=== PATIENT | male | born 2000 | race Two or more races ===

== ENCOUNTER 2020-01-23 10:06 | Outpatient (REF) | payer OTHER, SELFPAY | END 2020-01-23 10:07 | disposition home or self-care (01) | LOC: HO.LAB 10:06 | PROVIDERS: Visit Provider Internal Medicine | DX: Z20.828 Contact with and (suspected) exposure to other viral communicable diseases (principal) | CPT/HCPCS: C9803; U0003 ==

== ENCOUNTER 2020-09-25 11:45 | Emergency (ER) | payer OTHER, SELFPAY ==
--- NOTE | ~2020-09-25 | XR_ITS ---
EXAMINATION: XR ANKLE, RIGHT CLINICAL INFORMATION: Pain COMPARISON: None TECHNIQUE: AP, lateral, and mortise views of the right ankle. FINDINGS: The malleoli are intact and the ankle mortise is symmetric. There is no fracture or dislocation. No joint narrowing. No osteochondral lesion talar dome. The retrocalcaneal recess is preserved. Subtalar joint appears normal. Base of the fifth metatarsal is intact. XR/XR ankle RT min 3V IMPRESSION: No fracture or dislocation.
[2020-09-25 11:50] VITALS: BP 134/75; PULSE 68; RESP 18; TEMP 36.1; O2SAT 97; BMI 29.5
--- NOTE | 2020-09-25 12:39 | ED_ITS ---
HPI - Extremity Problem General Chief complaint: Extremity Problem Stated complaint: ankle injury Time Seen by Provider: 09/25/20 12:39 History of Present Illness HPI Narrative: Patient complains of right ankle pain after twisting it 2 days ago in basketball, no numbness weakness or tingling no laceration no other joint pains no other injury Related Data Previous Rx's Medication Instructions Recorded ibuprofen 600 mg tablet 600 mg PO Q6H PRN #20 tab 09/25/20 Allergies Allergy/AdvReac Type Severity Reaction Status Date / Time Penicillins [PENICILLINS] Allergy Unknown UNKNOWN Unverified 11/02/19 19:40 Review of Systems Review of Systems: Positive for right ankle pain and swelling Negatives are no head injury no neck pain no back pain no numbness weakness or tingling no knee pain Yes all other systems are reviewed and are negative [facility] Past Medical History Source: nursing notes reviewed Medical History (Updated 09/25/20 @ 12:43 by BIANCA Guillaume) Asthma Social History Social History Advance Directives: No Advance Directives Information Provided: No Physical Exam Vital Signs: Vital Signs: Last Vital Signs Temp 96.9 F 09/25/20 11:50 Pulse 68 09/25/20 11:50 Resp 18 09/25/20 11:50 BP 134/75 09/25/20 11:50 Pulse Ox 97 09/25/20 11:50 Body Mass Index 29.5 General appearance is no acute distress Head is normocephalic atraumatic Neck is supple nontender The back full range of motion Respiratory no distress The right leg has full range of motion at the knee and hip, the right ankle has tenderness swelling and ecchymosis both medial and lateral, Achilles tendon is intact, neurovascular is intact and skin is intact without wound or redness, neurovascular intact distal Course Course Course Narrative: X-ray of the right ankle was negative for fracture no acute finding Patient ambulates comfortably with a limp and is given an ankle brace and a work note and follow with Orthopedics if needed Discharge Plan Discharge Clinical Impression: Right ankle sprain Patient Disposition: Home, Self-Care Additional Instructions: X-ray of the right ankle was negative no fracture seen Follow with orthopedist as needed Return any time if worse Prescriptions: New ibuprofen 600 mg tablet 600 mg PO Q6H PRN (Reason: pain) Qty: 20 RF: 0 Referrals: Yohan Villasenor MD [Physician] - 2 days (Right ankle sprain)
--- NOTE | 2020-09-25 13:22 | ED.EXTPRO ---
HPI - Extremity Problem General Chief complaint: Extremity Problem Stated complaint: ankle injury Time Seen by Provider: 09/25/20 12:39 History of Present Illness HPI Narrative: Patient complains of right ankle pain after twisting it playing ball 2 days ago, pain is mild, no other injury Related Data Previous Rx's Medication Instructions Recorded ibuprofen 600 mg tablet 600 mg PO Q6H PRN #20 tab 09/25/20 Allergies Allergy/AdvReac Type Severity Reaction Status Date / Time Penicillins [PENICILLINS] Allergy Unknown UNKNOWN Unverified 11/02/19 19:40 Review of Systems Review of Systems: Positive for right ankle pain Negatives are no headache no neck pain no back pain no numbness weakness or tingling no laceration no other joint pains Yes all other systems are reviewed and are negative [facility] Past Medical History Source: nursing notes reviewed Medical History (Updated 09/26/20 @ 00:02 by Keerthi Romero) Asthma Social History Social History Advance Directives: No Advance Directives Information Provided: No Physical Exam Vital Signs: Vital Signs: Last Vital Signs Temp 96.9 F 09/25/20 11:50 Pulse 68 09/25/20 11:50 Resp 18 09/25/20 11:50 BP 134/75 09/25/20 11:50 Pulse Ox 97 09/25/20 11:50 Body Mass Index 29.5 General appearance no acute distress Head is normocephalic atraumatic Neck is supple nontender Respiratory no distress The back at full range of motion Extremities the right ankle had tenderness swelling around the lateral malleolus, ambulated with a limp, skin was intact and neurovascular intact distal Other extremities were normal Neuro no focal motor sensory deficits Course Course Course Narrative: Right ankle x-ray was negative, patient was otherwise well appearing and was discharged with a work note and referral to Orthopedics if needed Discharge Plan Discharge Clinical Impression: Right ankle sprain Patient Disposition: Home, Self-Care Additional Instructions: X-ray of the right ankle was negative no fracture seen Follow with orthopedist as needed Return any time if worse Prescriptions: New ibuprofen 600 mg tablet 600 mg PO Q6H PRN (Reason: pain) Qty: 20 RF: 0 Referrals: Yohan Villasenor MD [Physician] - 2 days (Right ankle sprain) Stand Alone Forms: Work/School Release Interventions: ED Discharge Assessment Last Done: 09/25/20 13:00 Discharge Date/Time: 09/25/20 13:01
== END 2020-09-25 13:01 | disposition home or self-care (01) ==
PROVIDERS: Emergency Provider Emergency Medicine Emergency Medical Services; PCP Internal Medicine
DX: S93.401A Sprain of unspecified ligament of right ankle, initial encounter (principal); X50.1XXA Overexertion from prolonged static or awkward postures, initial encounter; Y93.67 Activity, basketball; Y92.9 Unspecified place or not applicable; Y99.9 Unspecified external cause status
CPT/HCPCS: 73610; 99283

== ENCOUNTER 2022-01-13 14:05 | Emergency (ER) | payer OTHER, SELFPAY ==
[2022-01-13 18:41] VITALS: BP 150/88; PULSE 92; RESP 18; TEMP 37.1; O2SAT 96; BMI 31.7
--- NOTE | 2022-01-13 18:43 | ED.GENADULT ---
HPI - General Adult General Chief complaint: Upper Respiratory Symptoms Stated complaint: sore throat Time Seen by Provider: 01/13/22 19:48 Related Data Previous Rx's Medication Instructions Recorded ibuprofen 600 mg tablet 600 mg PO Q6H PRN pain #20 tabs 09/25/20 Magic Mouthwash 5 ml PO BID sore throat #240 mL 01/13/22 Diphen/Lido/Antacid 1:1:1 240 mL suspension prednisone 20 mg tablet 40 mg PO DAILY 5 days #10 tabs 01/13/22 Allergies Allergy/AdvReac Type Severity Reaction Status Date / Time Penicillins [PENICILLINS] Allergy Unknown UNKNOWN Verified 01/13/22 18:41 PMFSH Past Medical History Medical History Asthma Social History Social History Advance Directives: No Physical Exam ED Vital Signs: Vital Signs - 24 hr 01/13/22 18:41 Temperature 98.7 F Pulse Rate 92 Respiratory Rate 18 Blood Pressure 150/88 H Pulse Oximetry 96 Oxygen Delivery Method Room Air BMI result Body Mass Index 31.7 Course Course Course Narrative: 21M with subjective fevers, chills, nasal congestion, sore throat but no ear pain for 2-3 days. VITAL SIGNS: Reviewed. GENERAL: Well developed, well nourished, in no acute distress. EYES: PERRLA, EOMI intact without pain, no nystagmus/pallor/icterus noted EARS: Ext canals without abnormality, TMs non-bulging and non-erythematous NOSE: Nares patent bilateral OROPHARYNX: no oral lesions noted, posterior pharynx clear and non-erythematous without noted tonsillar enlargement/erythema/exudates NECK: Supple, no adenopathy LUNGS: Normal breath sounds. No adventitious sounds or accessory muscle use. To CARDIOVASCULAR: Regular rate and rhythm without noted murmurs ABDOMEN: Soft, non-tender, non-distended with bowel sounds. SKIN: Inspection of the skin reveals no rashes NEUROLOGIC: Alert and oriented x 4. Strength and sensation to light touch were grossly intact x 4. Medical Decision Making Lab Data Labs: Lab Results 01/13/22 01/13/22 Range/Units 18:46 18:46 Influenza Type A (PCR) POSITIVE A (Negative) Influenza Type B (PCR) NEGATIVE (Negative) RSV RNA Qual (PCR) NEGATIVE (Negative) SARS-CoV-2 RNA (RT-PCR) NEGATIVE (Negative) S. pyogenes GrpA GM Negative (Negative) Discharge Plan Discharge Clinical Impression: Influenza, Sore throat Patient Disposition: Home, Self-Care Instructions: Influenza (ED) Additional Instructions: Take your medications as prescribed. If you were prescribed antibiotics today, it is important that you take your medication to their entirety, do not skip any doses, do not finish them early. Follow-up with your primary care provider this week. Return to the emergency department with new or worsening symptoms difficulty controlling secretions, fevers, chills, chest pain, shortness of breath, nausea, vomitin, not tollerating food. In case of emergency call 911 You can take ibuprofen every 6 hours, tylenol every 4 hours as needed for fevers, pain or discomfort You are contagious follow good hygiene Prescriptions: New prednisone 20 mg tablet 40 mg PO DAILY 5 Days Qty: 10 0RF Magic Mouthwash Diphen/Lido/Antacid 1:1:1 240 mL suspension 5 ml PO BID Qty: 240 0RF Rx Instructions: Lidocaine Viscous 2 % 80mL; diphenhydramine 12.5 mg/5 mL 80mL; aluminum-mag hydrox-simeth [id number]/5mL 80mL Swish and spit No Action ibuprofen 600 mg tablet 600 mg PO Q6H PRN (Reason: pain) Qty: 20 0RF Referrals: El Cordova III, MD [Primary Care Provider] - 2 days Stand Alone Forms: Work/School Release
[2022-01-13 19:12] LABS: Strep A Nucleic Acid Negative (Negative)
[2022-01-13 19:38] LABS: Influenza A PCR POSITIVE (Negative); Influenza B PCR NEGATIVE (Negative); Resp Syncy Virus RNA Qual PCR NEGATIVE (Negative); SARS COV2 PCR INHOUSE NEGATIVE (Negative)
--- NOTE | 2022-01-13 19:50 | ED.URI ---
HPI - URI/Sore Throat General Chief Complaint: Upper Respiratory Symptoms Stated Complaint: sore throat Time Seen by Provider: 01/13/22 19:48 Source: patient Mode of arrival: ambulatory Limitations: no limitations History of Present Illness HPI Narrative: 21 year old male no significant medical history presenting with three days of subjective fevers, chills, sore throat, dry cough, fatigue and malaise. Reports recent sick contacts tested positive for influenza. Denies chest pain, shortness of breath, nausea, vomiting, abd pain, headache, vision changes, dizzinss, weakness. Tollerating PO. Normal spirits per patient. Not vaccinated against flu. Related Data Previous Rx's Medication Instructions Recorded ibuprofen 600 mg tablet 600 mg PO Q6H PRN pain #20 tabs 09/25/20 Magic Mouthwash 5 ml PO BID sore throat #240 mL 01/13/22 Diphen/Lido/Antacid 1:1:1 240 mL suspension prednisone 20 mg tablet 40 mg PO DAILY 5 days #10 tabs 01/13/22 Allergies Allergy/AdvReac Type Severity Reaction Status Date / Time Penicillins [PENICILLINS] Allergy Unknown UNKNOWN Verified 01/13/22 18:41 Review of Systems Review of Systems: Constitutional : No Weight loss, + Fever, + Chills, + Fatigue, + Malaise ENT/Mouth : + sore throat, No Rhinorrhea Eyes: No Eye Pain, No Swelling, No Redness Cardiovascular : No Chest Pain, No SOB, No Dyspnea on Exertion, No Orthopnea, No Edema, No Palpitations Respiratory : + Cough, No Sputum, No Wheezing Gastrointestinal : No Nausea, No Vomiting, No Diarrhea, No Constipation, No abdominal Pain, No Hematochezia, No Melena Genitourinary : No Dysuria, No Urinary Frequency, No Hematuria, Musculoskeletal : No joint pain, + Myalgias, No Joint Swelling Skin : No Skin Lesions, No rash Neuro : No Weakness, No Numbness, No Dizziness, No Headache Psych : No Anxiety/Panic, No Depression All other systems reviewed and are negative Yes all other systems are reviewed and are negative [facility] Past Medical History Attestation statement: The following information was validated with the patient. Source: old records reviewed and nursing notes reviewed Medical History Asthma Physical Exam Vital Signs: Vital Signs: Last Vital Signs Temp 98.7 F 01/13/22 18:41 Pulse 92 01/13/22 18:41 Resp 18 01/13/22 18:41 BP 150/88 H 01/13/22 18:41 Pulse Ox 96 01/13/22 18:41 O2 Del Method 01/13/22 18:41 BMI result Body Mass Index 31.7 vss Appearance: Alert.? Oriented X3.? No acute distress.?Non toxic appearing Head: Normocephalic, atraumatic, no step-offs or deformities Eyes: Pupils equal, round and reactive to light.? ENT: Pharynx w/ slightly edematous and errythematous tonsils, midline uvula, no abcess or exudate.?No pain with manipulation of external ears bilaterally. No mastoid tenderness. Neck: Normal inspection.? Neck supple. No menigeal signs CVS: Normal heart rate and rhythm.? Pulses normal.? Respiratory: No respiratory distress.? Breath sounds normal.? Abdomen: Soft and nontender.? Skin: Skin warm and dry.? Normal skin color.? Normal skin turgor.? Extremities: No lower extremity edema.? No calf ttp. 5/5 strength to bilateral upper and lower extremities Neuro: Oriented X 3.? No motor deficit.? No sensory deficit. CN 2-12 intact Course Reevaluation(s) Reevaluation #1: Sx for > 48 hrs no need for tamiflu. Will DC home w/ supportive measures. Adives to return w/ new or worsening sx, educated on these. Comfortable w/ dc home with PCP follow up. Time: 19:55 MDM - URI/Sore Throat [facility] Narrative Medical decision making narrative: 1952 21 year old male w/ flu like sx X3 days. Reports sick contacts w/ flu + PE w/ slightly swollen tonsils no exudate or abcess Likley influenza. Will rule out covid/ flu/ rsv. Unlikley strep, peritonsillar abcess, epiglotitis, masotiditis, pna, pe Medical Records Attestation: I reviewed the patient's medical records. Lab Data Attestation: I reviewed the patient's lab results. Labs: Lab Results 01/13/22 01/13/22 Range/Units 18:46 18:46 Influenza Type A (PCR) POSITIVE A (Negative) Influenza Type B (PCR) NEGATIVE (Negative) RSV RNA Qual (PCR) NEGATIVE (Negative) SARS-CoV-2 RNA (RT-PCR) NEGATIVE (Negative) S. pyogenes GrpA GM Negative (Negative) Critical Care Time Critical Care Time Critical Care Time: No Discharge Plan Discharge Clinical Impression: Influenza, Sore throat Patient Disposition: Home, Self-Care Instructions: Influenza (ED) Additional Instructions: Take your medications as prescribed. If you were prescribed antibiotics today, it is important that you take your medication to their entirety, do not skip any doses, do not finish them early. Follow-up with your primary care provider this week. Return to the emergency department with new or worsening symptoms difficulty controlling secretions, fevers, chills, chest pain, shortness of breath, nausea, vomitin, not tollerating food. In case of emergency call 911 You can take ibuprofen every 6 hours, tylenol every 4 hours as needed for fevers, pain or discomfort You are contagious follow good hygiene Prescriptions: New prednisone 20 mg tablet 40 mg PO DAILY 5 Days Qty: 10 0RF Magic Mouthwash Diphen/Lido/Antacid 1:1:1 240 mL suspension 5 ml PO BID Qty: 240 0RF Rx Instructions: Lidocaine Viscous 2 % 80mL; diphenhydramine 12.5 mg/5 mL 80mL; aluminum-mag hydrox-simeth [id number]/5mL 80mL Swish and spit No Action ibuprofen 600 mg tablet 600 mg PO Q6H PRN (Reason: pain) Qty: 20 0RF Referrals: El Cordova III, MD [Primary Care Provider] - 2 days Stand Alone Forms: Work/School Release
== END 2022-01-13 20:19 | disposition home or self-care (01) ==
PROVIDERS: Student in an Organized Health Care Education/Training Program; Emergency Provider Emergency Medicine; PCP Internal Medicine
DX: J10.1 Influenza due to other identified influenza virus with other respiratory manifestations (principal); Z20.822 Contact with and (suspected) exposure to COVID-19
CPT/HCPCS: 0241U; 36415; 87651; 99282; 99283

== ENCOUNTER 2022-09-18 07:58 | Emergency (ER) | payer SELFPAY ==
[2022-09-18 08:11] VITALS: BP 138/81; PULSE 64; RESP 18; TEMP 36.8; O2SAT 97; BMI 31.7
[2022-09-18 08:36] VITALS: BP 132/68; PULSE 71; RESP 18; TEMP 37.6; O2SAT 98
--- NOTE | 2022-09-18 08:42 | ED.GENADULT ---
HPI - General Adult General Chief complaint: Wound/Laceration Stated complaint: Cyst on thigh Time Seen by Provider: 09/18/22 08:39 Source: patient Mode of arrival: ambulatory Limitations: no limitations History of Present Illness HPI narrative: Patient presents with a cystic structure on left medial thigh. Started 1-2 days ago. Patient has associated [id number] pain. The pain is worse with palpation. There has been no drainage. He has never had anything like this before. Denies any fevers or chills. Related Data Previous Rx's Medication Instructions Recorded ibuprofen 600 mg tablet 600 mg PO Q6H PRN pain #20 tabs 09/25/20 Magic Mouthwash 5 ml PO BID sore throat #240 mL 01/13/22 Diphen/Lido/Antacid 1:1:1 240 mL suspension prednisone 20 mg tablet 40 mg PO DAILY 5 days #10 tabs 01/13/22 sulfamethoxazole 800 1 tab PO BID #14 tabs 09/18/22 mg-trimethoprim 160 mg tablet (Bactrim DS) Allergies Allergy/AdvReac Type Severity Reaction Status Date / Time Penicillins [PENICILLINS] Allergy Unknown UNKNOWN Verified 09/18/22 08:13 Review of Systems Review of Systems: CONSTITUTIONAL: Denies weight loss, fever and chills. HEENT: Denies changes in vision and hearing. RESPIRATORY: Denies SOB and cough. CV: Denies palpitations no CP. GI: Denies abdominal pain, nausea, vomiting and diarrhea. : Denies dysuria and urinary frequency. MSK: Denies myalgia and joint pain. SKIN: Denies rash and pruritus. NEUROLOGICAL: Denies headache and syncope. PSYCHIATRIC: Denies recent changes in mood. Denies anxiety and depression. All other ROS are negative unless in HPI PMFSH Past Medical History Medical History Asthma Social History Social History Alcohol intake: never Smoked in Last 30 Days: No Use of substances other than those prescribed or required for medical reasons: No Advance Directives: No Advance Directives Information Provided: Yes Physical Exam ED Vital Signs: Vital Signs - 24 hr 09/18/22 08:11 09/18/22 08:36 Temperature 98.3 F 99.6 F Pulse Rate 64 71 Respiratory Rate 18 18 Blood Pressure 138/81 132/68 Pulse Oximetry 97 98 Oxygen Delivery Method Room Air Room Air BMI result Body Mass Index 31.7 GEN: Well developed, no acute distress, alert, oriented HEENT: Normocephalic, atraumatic, normal external ears, nose appears normal Eyes: Normal to appearance Neck: Supple, no lymphadenopathy Respiratory: Talks in complete sentences, no respiratory distress Extremities: No clubbing cyanosis or edema Neurologic: No focal neurologic deficits, cranial nerves 2-12 intact, gait normal Skin: No rash, small ingrown hair/superficial abscess left andrew thigh proximally 0.75 cm wide. Able to express purulent and bloody discharge. Medical Decision Making Medical Decision Making MDM Narrative: Patient presents with a likely ingrown hair and medial thigh/abscess. Was able to express purulent material. Discussed warm compresses. There is no definite indication for antibiotics at this time however I will prescribe the patient antibiotics in the case that he develops progressive skin changes cleaning erythema, enlarging abscess, etc.. He is aware that he should return for any worsening or concerning symptoms. Differential Diagnosis Differential Diagnoses: The differential diagnosis associated with the presentation includes (Abscess, ingrown hair) Prescription Management I considered prescription management with: Antibiotic Discharge Plan Discharge Clinical Impression: Abscess Patient Disposition: Home, Self-Care Instructions: Abscess (ED), Sitz Bath (DC) Prescriptions: New sulfamethoxazole-trimethoprim [Bactrim DS] 800-160 mg tablet 1 tab PO BID Qty: 14 0RF No Action ibuprofen 600 mg tablet 600 mg PO Q6H PRN (Reason: pain) Qty: 20 0RF prednisone 20 mg tablet 40 mg PO DAILY 5 Days Qty: 10 0RF Magic Mouthwash Diphen/Lido/Antacid 1:1:1 240 mL suspension 5 ml PO BID Qty: 240 0RF Rx Instructions: Lidocaine Viscous 2 % 80mL; diphenhydramine 12.5 mg/5 mL 80mL; aluminum-mag hydrox-simeth [id number]/5mL 80mL Swish and spit Referrals: El Cordova III, MD [Primary Care Provider] - 2 days (if needed) Stand Alone Forms: Work/School Release
== END 2022-09-18 08:54 | disposition home or self-care (01) ==
PROVIDERS: Emergency Provider Emergency Medicine; PCP Internal Medicine
DX: L02.416 Cutaneous abscess of left lower limb (principal); M79.652 Pain in left thigh
CPT/HCPCS: 99283; 99284

== ENCOUNTER 2023-02-27 17:06 | Emergency (ER) | payer OTHER, SELFPAY ==
--- NOTE | ~2023-02-27 | XR_ITS ---
EXAMINATION: XR ankle RT min 3V, XR foot RT min 3V 02/27/2023 6:22 PM CLINICAL HISTORY: pain s/p inversion COMPARISON: None FINDINGS: Tiny ossific fragment inferior to the fibular tip, suspicious for small avulsion, possibly from the lateral talus. No evidence of malalignment. Mild proliferative change at the medial malleolus, likely sequela of remote ligamentous injury. Ankle mortise is congruent. Talar dome is intact. Posterior talar Stieda process. Small posterior calcaneal enthesophyte. No tibiotalar joint effusion. Marked lateral ankle soft tissue swelling. XR/XR ankle RT min 3V IMPRESSION: 1. Tiny ossific fragment inferior to the fibular tip, suspicious for small avulsion, possibly from the lateral talus. 2. Marked lateral ankle soft tissue swelling.
--- NOTE | ~2023-02-27 | XR_ITS ---
EXAMINATION: XR ankle RT min 3V, XR foot RT min 3V 02/27/2023 6:22 PM CLINICAL HISTORY: pain s/p inversion COMPARISON: None FINDINGS: Tiny ossific fragment inferior to the fibular tip, suspicious for small avulsion, possibly from the lateral talus. No evidence of malalignment. Mild proliferative change at the medial malleolus, likely sequela of remote ligamentous injury. Ankle mortise is congruent. Talar dome is intact. Posterior talar Stieda process. Small posterior calcaneal enthesophyte. No tibiotalar joint effusion. Marked lateral ankle soft tissue swelling. XR/XR foot RT min 3V IMPRESSION: 1. Tiny ossific fragment inferior to the fibular tip, suspicious for small avulsion, possibly from the lateral talus. 2. Marked lateral ankle soft tissue swelling.
[2023-02-27 17:11] VITALS: BP 110/60; PULSE 84; O2SAT 100
[2023-02-27 17:54] VITALS: BP 121/61; PULSE 84; RESP 16; TEMP 36.5; O2SAT 97; BMI 33.2
--- NOTE | 2023-02-27 17:54 | ED.LOWEXIN ---
HPI - Extremity Injury (Lower) General Chief Complaint: Extremity Injury, Lower Stated Complaint: ankle injury Time Seen by Provider: 02/27/23 19:24 Source: patient and RN notes reviewed Mode of arrival: ambulatory Limitations: no limitations History of Present Illness HPI Narrative: This is a 22-year-old male, with a history of asthma, presenting to the emergency department complaints of right ankle and foot pain status post inversion injury while playing basketball this evening. Patient reports that he accidentally rolled his right ankle and immediately felt a pop and a snap in his right ankle and foot. He has been unable to bear weight on his right foot and ankle since the injury. He was medicated with ibuprofen 600 mg prior to his arrival. Denies previous fracture in this ankle however reports he believes he has rolled his ankle before. Denies hitting his head or loss of consciousness. No other pain. No other complaints or concerns this time. MD complaint: ankle injury and foot injury Onset (ago): minute(s) Type of Injury: inversion Place: street/outdoors Severity: moderate Relieving factors: NSAID Exacerbating factors: weight bearing Context: running Associated symptoms: snap/pop sensation, swelling, tingling and unable to bear weight Other symptoms: none Treatments prior to arrival: cold therapy and NSAIDS Related Data Previous Rx's Medication Instructions Recorded ibuprofen 600 mg tablet 600 mg PO Q6H PRN pain #20 tabs 09/25/20 Magic Mouthwash 5 ml PO BID sore throat #240 mL 01/13/22 Diphen/Lido/Antacid 1:1:1 240 mL suspension prednisone 20 mg tablet 40 mg (2 x 20 mg) PO DAILY 5 days 01/13/22 #10 tabs sulfamethoxazole 800 1 tab PO BID #14 tabs 09/18/22 mg-trimethoprim 160 mg tablet (Bactrim DS) acetaminophen 500 mg tablet 500 mg PO Q6H PRN pain #30 tabs 02/27/23 (Tylenol Extra Strength) ibuprofen 600 mg tablet 600 mg PO Q6H PRN pain #30 tabs 02/27/23 Allergies Allergy/AdvReac Type Severity Reaction Status Date / Time Penicillins [PENICILLINS] Allergy Unknown UNKNOWN Verified 09/18/22 08:13 Review of Systems Review of Systems: Yes all other systems are reviewed and are negative PMFSH Past Medical History Attestation statement: The following information was validated with the patient. Onset Date is defined in the Problem List Problems that require an onset date and time if occurred within 24 hrs of arrival to the ED Aortic Dissection and Rupture; Neurologic impairment; Cardiopulmonary Arrest; Endotracheal Intubation; Insertion or Replacement of Mechanical Circulatory Assist Device Medical History Asthma Social History Social History Alcohol intake: never Advance Directives: No Advance Directives Information Provided: No Physical Exam Vital Signs: Vital Signs: Last Vital Signs Temp 97.7 F 02/27/23 17:54 Pulse 84 02/27/23 17:54 Resp 16 02/27/23 17:54 BP 121/61 02/27/23 17:54 Pulse Ox 97 02/27/23 17:54 O2 Del Method Room Air 02/27/23 17:54 BMI result Body Mass Index 33.2 Const: Other: General: Awake, alert, and oriented X3. No acute distress. HEENT: Normal inspection CVS: Normal heart rate and rhythm. Pulses normal. Respiratory: No respiratory distress Skin: Warm, dry, no rashes noted to exposed skin. Normal skin color. Normal skin turgor. Extremities: Right ankle is moderately edematous, with tenderness palpation along the lateral and medial malleolus. More tenderness palpation along the lateral malleolus, as well tenderness to palpation along the left 5th metatarsal There is moderate swelling noted to the dorsum of the right foot. Decreased range of motion of the right ankle and foot secondary to pain and swelling. DP pulse 2 +. Able to move all toes without difficulty. Distal sensation circulation intact Neuro: Oriented X 3. No motor deficit. No sensory deficit. Course Course Course Narrative: This is an RME: Additional HPI, ROS, PE not included below will be deferred to primary provider. This is a 22-year-old male presenting to the emergency department for evaluation of right ankle and foot pain status post inversion injury while playing basketball. He has been unable to bear weight on his right foot and ankle since the injury. Right ankle is edematous, with tenderness palpation along the medial and lateral malleolus and right 5th metatarsal. Patient already received ibuprofen via EMS prior to his arrival. Plan: Xray foot and xray ankle ordered Medical Decision Making Medical Decision Making MDM Narrative: This is a 22-year-old male, with a history of asthma, presenting to the emergency department complaints of right ankle and foot pain status post inversion injury while playing basketball this evening. Examination findings concerning for possible malleoli fracture versus metatarsal fracture. Distal sensation circulation intact. X-ray of the right ankle and foot revealing possible talus fracture versus fibular fracture. Given findings, patient was placed in splint and crutches and given orthopedic follow-up. Given return precautions. Patient understands agrees with plan. Patient stable for discharge Differential Diagnosis Differential Diagnoses: The differential diagnosis associated with the presentation includes Fracture, sprain, strain, contusion, dislocation Radiology Impression Discussion of test interpretation with radiology: I have reviewed the radiologist's reading. Radiologist Impression: EXAMINATION: XR ankle RT min 3V, XR foot RT min 3V 02/27/2023 6:22 PM CLINICAL HISTORY: pain s/p inversion COMPARISON: None FINDINGS: Tiny ossific fragment inferior to the fibular tip, suspicious for small avulsion, possibly from the lateral talus. No evidence of malalignment. Mild proliferative change at the medial malleolus, likely sequela of remote ligamentous injury. Ankle mortise is congruent. Talar dome is intact. Posterior talar Stieda process. Small posterior calcaneal enthesophyte. No tibiotalar joint effusion. Marked lateral ankle soft tissue swelling. XR/XR foot RT min 3V IMPRESSION: 1. Tiny ossific fragment inferior to the fibular tip, suspicious for small avulsion, possibly from the lateral talus. 2. Marked lateral ankle soft tissue swelling. Dictated By: Anastacio Smith MD EXAMINATION: XR ankle RT min 3V, XR foot RT min 3V 02/27/2023 6:22 PM CLINICAL HISTORY: pain s/p inversion COMPARISON: None FINDINGS: Tiny ossific fragment inferior to the fibular tip, suspicious for small avulsion, possibly from the lateral talus. No evidence of malalignment. Mild proliferative change at the medial malleolus, likely sequela of remote ligamentous injury. Ankle mortise is congruent. Talar dome is intact. Posterior talar Stieda process. Small posterior calcaneal enthesophyte. No tibiotalar joint effusion. Marked lateral ankle soft tissue swelling. XR/XR ankle RT min 3V IMPRESSION: 1. Tiny ossific fragment inferior to the fibular tip, suspicious for small avulsion, possibly from the lateral talus. 2. Marked lateral ankle soft tissue swelling. Dictated By: Anastacio Smith MD Prescription Management I considered prescription management with: Pain Medication Procedures Orthopedic Splinting/Casting Injury #1: Side: right Lower Extremity Injury Location: ankle and foot Lower Extremity Immobilizer: posterior splint and stirrup splint Other Orthopedic Equipment: crutches Discharge Plan Discharge Clinical Impression: Ankle fracture, Fracture of talus Patient Disposition: Home, Self-Care Instructions: Ankle Fracture (ED), Crutch Instructions (ED) Additional Instructions: Your seen in the emergency department due to right foot and ankle pain. Your x-ray reveals a tiny fragment, suspicious for a lateral talus fracture versus fibular fracture. We placed your right foot and ankle in a splint, please keep the splint on until you are seen by Orthopedics. You need to call the orthopedist on Wednesday for follow-up. Please keep your splint clean and dry, do not shower while this is on. Do not remove until you are seen by Orthopedics. Do not weight bear on your foot and ankle (use crutches) until you are cleared by Orthopedics. Elevating your leg above multiple pillows will help with swelling and pain. If any new or worsening symptoms occur including but not limited to worsening pain, changes in coloration of your toes, numbness and tingling into your toes, please return for re-evaluation. Prescriptions: New ibuprofen 600 mg tablet 600 mg PO Q6H PRN (Reason: pain) Qty: 30 0RF acetaminophen [Tylenol Extra Strength] 500 mg tablet 500 mg PO Q6H PRN (Reason: pain) Qty: 30 0RF No Action ibuprofen 600 mg tablet 600 mg PO Q6H PRN (Reason: pain) Qty: 20 0RF prednisone 20 mg tablet 40 mg PO DAILY 5 Days Qty: 10 0RF Magic Mouthwash Diphen/Lido/Antacid 1:1:1 240 mL suspension 5 ml PO BID Qty: 240 0RF Rx Instructions: Lidocaine Viscous 2 % 80mL; diphenhydramine 12.5 mg/5 mL 80mL; aluminum-mag hydrox-simeth 399df-466dt-15zg/5mL 80mL Swish and spit sulfamethoxazole-trimethoprim [Bactrim DS] 800-160 mg tablet 1 tab PO BID Qty: 14 0RF Ref[place]: [facility] [place] [facility] [Provider Group]
== END 2023-02-27 21:58 | disposition home or self-care (01) ==
PROVIDERS: Emergency Provider Internal Medicine; PCP Internal Medicine
DX: S92.101A Unspecified fracture of right talus, initial encounter for closed fracture (principal); X50.1XXA Overexertion from prolonged static or awkward postures, initial encounter; Y93.67 Activity, basketball; Y92.310 Basketball court as the place of occurrence of the external cause; Y99.9 Unspecified external cause status
CPT/HCPCS: 29515; 73610; 73630; 99282; 99283

== ENCOUNTER 2023-03-01 13:40 | Outpatient (AMB) | payer OTHER, SELFPAY ==
--- NOTE | 2023-03-01 13:50 | MHC.OFFVIS ---
Intake Vital Signs 03/01/23 14:04 Height 5 ft 9 in Weight 225 lb BMI 33.2 Intake Visit Reasons: FC/[employer]-RT Ankle fracture, FC of talus DOI 02/27/23 Intake Note: Rigoberto sainz 22 year old male presents today as a new patient for an ER follow up of right ankle, DOI 02/27/23. Patient reports while he was playing basketball he landed on another opponent injuring his right ankle. He presented to [facility] [place] [facility] same day where xrays were taken and placed in a splint. Currently his pain is located around his ankle. Numbness and tingling in his toes. Finds relief with ibuprofen. Allergies Penicillins [PENICILLINS] Allergy (Unknown, Verified 03/01/23 14:04) UNKNOWN Medication List - Last Reconciled 03/01/23 by BIANCA Fu-Rosario acetaminophen (Tylenol Extra Strength) 500 mg PO Q6H PRN albuterol sulfate 90 mcg/actuation (Ventolin HFA) 2 puffs inhalation Q4-6H PRN budesonide-formoterol 160-4.5 mcg/actuation inhalation ibuprofen 600 mg PO Q6H PRN ibuprofen 600 mg PO Q6H PRN HPI [employer]ICE-RT Ankle fracture, FC of talus DOI 02/27/23 HPI Details 22-year-old male who presents to the office today for an ER follow-up of right ankle injury s/p playing basketball when he landed on another opponent injuring his right ankle, 02/27/23. He was seen at ED the same day where x-rays were performed and he was placed in a splint. He currently states he has pain around his ankle as well as numbness and tingling in his toes. He finds relief with ibuprofen. 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 [facility] Medical History Asthma Social History (Updated 03/01/23 @ 13:52 by Kay Cain Teresa) Alcohol intake: never Patient Tobacco Use Status: Never used Tobacco Current occupational status: employed Current occupation: patient transportation driver, right hand dominant Review of Systems Const All systems reviewed & are unremarkable except as noted in HPI and below Physical Exam Vital Signs: BMI result Body Mass Index 33.2 Const General: cooperative, healthy appearing, comfortable, no acute distress, well developed and alert Orientation/consciousness: patient oriented x3 HEENT Head: Yes normal to inspection, Yes normocephalic and Yes atraumatic Eyes General: appearance normal, both eyes and all related structures Resp Effort & Inspection: normal respiratory effort and able to speak in complete sentences Cardio Rate: regular rate Peripheral pulses: Peripheral pulses 2+ throughout GI Palpation (GI): Soft to palpation Skin Lesions: no lesions Rashes: no rashes Neuro General: patient oriented x3 Extrem Other: Right ankle / foot: Normal to inspection with diffuse swelling over the lateral side of the foot with tenderness over the cuboid which extends along the plantar calcaneucuboid ligament. No discomfort along the posterior aspect of the ankle, no deformity along the Achilles tendon, negative Yanez?s. No pain along the syndesmosis or anterior tibia. No laxity, NVI. Office Procedures Fracture Care Fracture Billing Code: Fracture Billing Code Assessment & Plan Assessment & Plan (1) Right ankle sprain: Code(s): S93.401A - Sprain of unspecified ligament of right ankle, initial encounter Qualifiers: Encounter type: initial encounter Involved ligament of ankle: unspecified ligament Qualified Code(s): S93.401A - Sprain of unspecified ligament of right ankle, initial encounter (2) Avulsion fracture of ankle: Code(s): S82.899A - Other fracture of unspecified lower leg, initial encounter for closed fracture Qualifiers: Encounter type: initial encounter Fracture type: closed Laterality: right Qualified Code(s): S82.891A - Other fracture of right lower leg, initial encounter for closed fracture Plan He was fit for tall walking boot weight bearing as tolerated. He will wear this for 2 weeks and then begin physical therapy. We discussed options which include PT, NSAIDS, and injections. The patient will defer on the injection today and proceed with PT and NSAIDS. He can remove the boot for hygiene, resting, icing, elevation, and sleeping. After 2 weeks, he can transition to a lace up ankle brace. He will remain out of work for 2 weeks and after returning he will have the help of monitor for 2 weeks. I did explain to him that he may require occasional ibuprofen or Tylenol use with occasional flareups. If symptoms persist, the patient will contact the office for an injection, otherwise he will see us back in 6 weeks, sooner if needed. Orders: Orders PT Evaluation and Treatment Today S93.401A - Sprain of unspecified ligament of right ankle, initial encounter Patient Instructions: Scribed for Higinio Calderon PA-C, by Chetan Fitzpatrick director of medical staff services, on 03/01/2023 at 1:45 PM EST. Higinio Gannon PA-C, have personally reviewed and agree with the information entered by the scribe. Coding Level of Care Code New Pt Level 3 (27700) Diagnoses Sprain of right ankle, unspecified ligament, initial encounter S93.401A Encounter type: initial encounter Involved ligament of ankle: unspecified ligament Closed avulsion fracture of right ankle, initial encounter S82.891A Encounter type: initial encounter Fracture type: closed Laterality: right CPT Codes Fracture Care - Fracture Billing Code: Fracture Billing Code ([id number])
[2023-03-01 14:04] VITALS: BMI 33.2
== END 2023-03-01 14:36 | disposition home or self-care (01) ==
PROVIDERS: PCP Internal Medicine; Visit Provider Physician Assistant
DX: S93.401A Sprain of unspecified ligament of right ankle, initial encounter (principal); S82.891A Other fracture of right lower leg, initial encounter for closed fracture
CPT/HCPCS: 99203

== ENCOUNTER → 2023-03-01 13:40 | Outpatient (BNVA) | payer OTHER, SELFPAY | PROVIDERS: PCP Internal Medicine; Visit Provider Physician Assistant | DX: S93.401A Sprain of unspecified ligament of right ankle, initial encounter (principal); S82.891A Other fracture of right lower leg, initial encounter for closed fracture | CPT/HCPCS: 99202 ==

== ENCOUNTER 2024-03-19 12:47 | Emergency (ER) | payer SELFPAY ==
--- NOTE | ~2024-03-19 | CT_ITS ---
CLINICAL HISTORY: fall CT cervical spine without contrast Comparison: None Findings: Normal vertebral body alignment. No significant degenerative change. No acute fractures or dislocations. Visualized intracranial contents are unremarkable. No cervical fluid collections or masses. No consolidation or effusion at the lung apices. IMPRESSION: No acute findings. This document has been electronically signed by: Aurelia Waldron MD on 03/19/2024 15:00:46
--- NOTE | ~2024-03-19 | CT_ITS ---
CLINICAL HISTORY: head trauma CT head without contrast Comparison: CT/[place]/SR - BRAIN WO IV CONTRAST [id number] - 06/29/18 18:35 EDT Findings: The prior CT report is not available for review. No intra-axial mass, midline shift, hydrocephalus, or acute hemorrhage. No significant atrophy-like change or white matter disease. The visualized paranasal sinuses and mastoid air cells are normal. The orbits are within normal limits. There is no acute fracture. IMPRESSION: 1. No acute intracranial findings. This document has been electronically signed by: Aurelia Waldron MD on 03/19/2024 15:08:13
[2024-03-19 13:00] VITALS: BP 148/100; PULSE 87; RESP 18; TEMP 36.8; O2SAT 98; BMI 32.4
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
[2024-03-19] MEDS: diazePAM 5 MG TABLET PO (14:23)
[2024-03-19 15:27] VITALS: BP 130/71; PULSE 68; RESP 19; TEMP 36.6; O2SAT 99
[2024-03-19 15:29] VITALS: BP 130/71; PULSE 68; RESP 19; TEMP 36.6; O2SAT 99
== END 2024-03-19 15:30 | disposition home or self-care (01) ==
PROVIDERS: Emergency Provider Emergency Medicine; PCP Internal Medicine
DX: S01.01XA Laceration without foreign body of scalp, initial encounter (principal); S00.03XA Contusion of scalp, initial encounter; R51.9 Headache, unspecified; M54.2 Cervicalgia; Y04.2XXA Assault by strike against or bumped into by another person, initial encounter; Y93.67 Activity, basketball; Y92.310 Basketball court as the place of occurrence of the external cause; Y99.8 Other external cause status; Z79.899 Other long term (current) drug therapy; Z23 Encounter for immunization
CPT/HCPCS: 12001; 70450; 72125; 90471; 90472; 99282; 99284

== ENCOUNTER → 2024-03-19 13:03 | Outpatient (BNV) | payer SELFPAY | PROVIDERS: Emergency Provider Emergency Medicine; PCP Internal Medicine; Visit Provider Nuclear Medicine | DX: R52 Pain, unspecified (principal); W19.XXXA Unspecified fall, initial encounter; S09.90XA Unspecified injury of head, initial encounter | CPT/HCPCS: 70450; 72125 ==

== ENCOUNTER 2024-03-25 18:58 | Emergency (ER) | payer SELFPAY ==
[2024-03-25 19:02] VITALS: BP 136/75; PULSE 87; RESP 18; TEMP 36.6; O2SAT 98; BMI 31.7
--- NOTE | 2024-03-25 19:06 | ED_ITS ---
HPI - General Adult General Chief complaint: General Medical Stated complaint: back of head staple removal Time Seen by Provider: 03/25/24 19:48 Source: patient Mode of arrival: ambulatory Limitations: no limitations History of Present Illness ED Provider: Elaine Godinez aPRN HPI narrative: 23 yo male healthy here seeking kev to be removed from the back of his head which were placed 6 days ago. No complaints. Related Data Home Medications ?Medication ?Instructions ?Recorded ?Confirmed albuterol sulfate 90 mcg/actuation 2 puff inhalation Q4-6H PRN 03/01/23 03/01/23 aerosol inhaler (Ventolin HFA) budesonide-formoterol HFA 160 inhalation 03/01/23 03/01/23 mcg-4.5 mcg/actuation aerosol inhaler Previous Rx's ?Medication ?Instructions ?Recorded ibuprofen 600 mg tablet 600 mg PO Q6H PRN pain #20 tabs 09/25/20 acetaminophen 500 mg tablet 500 mg PO Q6H PRN pain #30 tabs 02/27/23 (Tylenol Extra Strength) ibuprofen 600 mg tablet 600 mg PO Q6H PRN pain #30 tabs 02/27/23 Allergies Allergy/AdvReac Type Severity Reaction Status Date / Time Penicillins [PENICILLINS] Allergy Unknown UNKNOWN Verified 03/25/24 19:02 Review of Systems 2 Review of Systems: Yes all other systems are reviewed and are negative Constitutional: Constitutional: Reports no additional constitutional complaints, Denies body ache(s), Denies chills, Denies fever(s), Denies headache(s) and Denies weakness Eyes: Eyes: Reports no additional eye complaints and Denies change in vision ENT: Reports system reviewed and no additional complaints, except as documented, Denies dizziness, Denies headache(s), Denies nasal congestion, Denies nasal discharge and Denies neck pain Cardiovascular: Cardiovascular: Reports no additional cardiovascular complaints, Denies chest pain, Denies leg edema and Denies dyspnea Respiratory: Respiratory: Reports no additional respiratory complaints, Denies cough and Denies dyspnea Gastrointestinal: Gastrointestinal: Reports no additional gastrointestinal complaints, Denies abdominal pain, Denies diarrhea, Denies nausea and Denies vomiting Genitourinary: Genitourinary: Denies urinary incontinence Musculoskeletal: Musculoskeletal: Reports no additional musculoskeletal complaints, Denies back pain, Denies arthralgias, Denies joint swelling, Denies neck pain, Denies numbness and Denies tingling Integumentary/Breasts: Skin/Breast: Reports system reviewed and no additional complaints, except as docu and Denies rash Neurologic: Reports system reviewed and no additional complaints, except as documented, Denies Abnormal speech present, Denies dizziness, Denies headache(s), Denies numbness, Denies tingling and Denies weakness [facility] Past Medical History Attestation statement: The following information was validated with the patient. Source: old records reviewed and nursing notes reviewed Medical History Asthma Social History Social History Alcohol intake: never Patient Tobacco Use Status: Never used Tobacco Advance Directives: No Advance Directives Information Provided: No Do you have a plan to hurt others: No Plan Current occupational status: employed Current occupation: hazardous materials driver, right hand dominant Physical Exam ED Vital Signs: Vital Signs - 24 hr 03/25/24 19:02 Temperature 97.9 F Pulse Rate 87 Respiratory Rate 18 Blood Pressure 136/75 Pulse Oximetry 98 Oxygen Delivery Method Room Air BMI result Body Mass Index 31.7 Const General: cooperative, healthy appearing, comfortable and no acute distress Orientation/consciousness: patient oriented x3 Limitations: no limitations HENMT Head: Yes normal to inspection Head images: 2 1. 4 kev present in posterior head. No signs of infection Ears: hearing grossly normal bilaterally General nose exam: Normal external nose present Face and sinus: Yes normal facial exam Mouth: Normal oral and palatal mucosa present Throat: Yes posterior oropharynx normal Eyes General: appearance normal, both eyes and all related structures Pupils: Equal, round and reactive pupils present Neck Neck: Yes normal visual inspection Chest Chest palpation & inspection: normal inspection of the chest Resp Effort & Inspection: normal respiratory effort Auscultation: clear to auscultation bilaterally Cardio Rate: regular rate Rhythm: regular rhythm Peripheral pulses: Peripheral pulses 2+ throughout GI Inspection: Yes normal to inspection Palpation (GI): Soft to palpation and nontender Auscultation: normal bowel sounds Back/Spine/Pelvis Thoracic/Lumbar Spine: thoracic and lumbar spine normal to inspection Skin General skin exam: no rashes or lesions noted Neuro General: patient oriented x3, no focal motor deficits and normal sensation to monofilament Cranial nerves: Yes Equal, round and reactive pupils present Cognition (Neuro): normal cognition Speech: No Abnormal speech present Gait exam (Neuro): Normal gait present Motor exam (neuro): 5/5 motor strength present throughout Extrem General: Yes normal to inspection Course Course Course Narrative: RME performed by Luann Frost PA-C. Patient is a 23 year old assigned male at presenting to the emergency department for staple removal. Detailed physical exam and review of systems are deferred to the primary grade teacher. Patient placed back in the waiting room pending room availability. Procedures Procedure Narrative Procedure Narrative: Four kev removed from posterior head Medical Decision Making Medical Decision Making MDM Narrative: 23 yo male healthy here seeking kev to be removed from the back of his head which were placed 6 days ago. No complaints.? +kev present. No signs of infection. See procedure note for removal. Differential Diagnosis Differential Diagnoses: The differential diagnosis associated with the presentation includes staple removal wound infection External Record Review External record reviewed: Outside ED record Discharge Plan Discharge Clinical Impression: Removal of staple Patient Disposition: Home, Self-Care Instructions: Stitches Removal (ED) Prescriptions: No Action ibuprofen 600 mg tablet 600 mg PO Q6H PRN (Reason: pain) Qty: 20 0RF ibuprofen 600 mg tablet 600 mg PO Q6H PRN (Reason: pain) Qty: 30 0RF acetaminophen [Tylenol Extra Strength] 500 mg tablet 500 mg PO Q6H PRN (Reason: pain) Qty: 30 0RF budesonide-formoterol 160-4.5 mcg/actuation HFA aerosol inhaler inhalation albuterol sulfate [Ventolin HFA] 90 mcg/actuation HFA aerosol inhaler 2 puff inhalation Q4-6H PRN Referrals: Poly Cordova MD [Primary Care Provider] - 1 week Print Language: Bahraini
[2024-03-25 20:25] VITALS: BP 130/71; PULSE 82; RESP 16; TEMP 36.7; O2SAT 99
== END 2024-03-25 20:26 | disposition home or self-care (01) ==
PROVIDERS: Emergency Provider Emergency Medicine; PCP Internal Medicine
DX: Z48.02 Encounter for removal of sutures (principal); S01.01XD Laceration without foreign body of scalp, subsequent encounter; X58.XXXD Exposure to other specified factors, subsequent encounter
CPT/HCPCS: 99284